=== PATIENT | male | born 1980 | race Caucasian/White ===

== ENCOUNTER 2016-10-08 09:22 | Emergency (ER) | payer OTHER ==
[~2016-10-08] VITALS: Ht 182.9 cm; Wt 99.8 kg
[2016-10-08] MEDS ORDERED: DIVA250T (09:35)
[2016-10-08] MEDS ORDERED: ASPI81TA7 (09:35)
[2016-10-08] MEDS ORDERED: DIVA500T3 (09:35)
[2016-10-08] MEDS ORDERED: PARO40TA (09:35)
[2016-10-08 09:41] VITALS: BP 133/88
[2016-10-08] MEDS ORDERED: ACET30TAB PO (10:04)
[2016-10-08] MEDS ORDERED: AMOX500C PO (10:04)
== END 2016-10-08 10:20 | disposition home or self-care (01) ==
LOC: M ED 10:05
DX: H66.92 Otitis media, unspecified, left ear (principal)

== ENCOUNTER → 2017-08-15 | Outpatient (CLI) | payer OTHER ==
[2017-08-15 09:45] LABS: BASO % 0.5 % (0.0-1.0); EOS # 0.1 10^3/uL (0.0-0.50); EOS % 1.2 % (0.0-3.0); HEMATOCRIT 45.1 % (42.0-52.0); HEMOGLOBIN 15.1 g/dl (14.0-18.0); IMMATURE GRANULOCYTE % 0.2 % (0-0); LYMPH # 1.9 10^3/uL (1.5-4.5); LYMPH % 32.5 % (24.0-44.0); MEAN CORPUSCULAR HEMOGLOBIN 30.9 pg (27.0-33.0); MEAN CORPUSCULAR HGB CONC 33.5 g/dl (32.0-36.5); MEAN CORPUSCULAR VOLUME 92.2 fl (80.0-96.0); MONO # 0.4 10^3/uL (0.0-0.8); MONO % 6.7 % (0.0-5.0); NEUTROPHILS # 3.4 10^3/uL (1.8-7.7); NEUTROPHILS % 58.9 % (36.0-66.0); PLATELET COUNT, AUTOMATED 172 10^3/uL (150-450); RED BLOOD COUNT 4.89 10^6/uL (4.30-6.10); RED CELL DISTRIBUTION WIDTH 12.1 % (11.5-14.5); WHITE BLOOD COUNT 5.8 10^3/uL (4.0-10.0)
[2017-08-15 10:02] LABS: ESTIMATED AVERAGE GLUCOSE 105 MG/DL (60-110); HEMOGLOBIN A1c 5.3 %
[2017-08-15 10:24] LABS: CHOLESTEROL LEVEL 133 MG/DL (<200); HDL CHOLESTEROL 35 MG/DL (>40); LDL CHOLESTEROL 76.4 MG/DL (<100); NON-HDL-C 98 MG/DL; THYROID STIMULATING HORMONE 0.992 uIU/ML (0.358-3.740); TRIGLYCERIDES LEVEL 108 MG/DL (<150)
[2017-08-15 12:30] LABS: FOLATE 11.8 NG/ML (>5.4)
== END ==
LOC: M LAB 09:01
DX: F34.1 Dysthymic disorder (principal)
CPT/HCPCS: 82746

== ENCOUNTER → 2018-01-17 | Outpatient (REF) | LOC: M SMT 14:54 | DX: Z02.71 Encounter for disability determination (principal) ==

== ENCOUNTER → 2018-02-19 | Outpatient (REF) | payer OTHER ==
[2018-02-19 18:58] LABS: TOTAL 25(OH) VITAMIN D 23.7 NG/ML (30.0-100.0)
== END ==
LOC: M LAB REF 17:13
DX: E55.9 Vitamin D deficiency, unspecified (principal)

== ENCOUNTER → 2019-03-29 | Outpatient (REF) | payer OTHER, MEDICAID ==
[~2019-03-29] MED LIST: ACET-716 PO; AMOX500C PO; ASPI1TAB15; DIVA250T67; DIVA500T94; PARO40TA2
[2019-03-29 13:27] LABS: BASO # 0.1 10^3/uL (0.0-0.2); EOS # 0.3 10^3/uL (0.0-0.5); EOS % 4.4 % (0.0-3.0); HEMATOCRIT 48.7 % (42.0-52.0); HEMOGLOBIN 16.1 g/dl (13.5-17.5); LYMPH # 1.7 10^3/uL (1.5-5.0); LYMPH % 25.4 % (24.0-44.0); MEAN CORPUSCULAR HEMOGLOBIN 31.3 pg (27.0-33.0); MEAN CORPUSCULAR HGB CONC 33.1 g/dl (32.0-36.5); MEAN CORPUSCULAR VOLUME 94.6 fl (80.0-96.0); MONO # 0.5 10^3/uL (0.0-0.8); MONO % 6.9 % (0.0-5.0); NEUTROPHILS # 4.2 10^3/uL (1.5-8.5); PLATELET COUNT, AUTOMATED 188 10^3/uL (150-450); RED BLOOD COUNT 5.15 10^6/uL (4.30-6.10); WHITE BLOOD COUNT 6.8 10^3/uL (4.0-10.0)
[2019-03-29 13:43] LABS: TOTAL 25(OH) VITAMIN D 25.6 NG/ML (30.0-100.0)
[2019-03-29 13:52] LABS: ALBUMIN 4.3 GM/DL (3.2-5.2); ALT/SGPT 30 U/L (12-78); BLOOD UREA NITROGEN 12 MG/DL (7-18); CALCIUM LEVEL 9.6 MG/DL (8.5-10.1); CARBON DIOXIDE LEVEL 27 MEQ/L (21-32); CHLORIDE LEVEL 110 MEQ/L (98-107); CHOLESTEROL LEVEL 129 MG/DL (<200); CHOLESTEROL RISK RATIO 3.794 (<5); CREATININE FOR GFR 0.88 MG/DL (0.70-1.30); FREE T4 1.22 NG/DL (0.76-1.46); GLOMERULAR FILTRATION RATE > 60.0 (>60); GLUCOSE, FASTING 94 MG/DL (70-100); HDL CHOLESTEROL 34 MG/DL (>40); LDL CHOLESTEROL 78 MG/DL (<100); NON-HDL-C 95 MG/DL; SODIUM LEVEL 143 MEQ/L (136-145); TOTAL PROTEIN 7.6 GM/DL (6.4-8.2); TRIGLYCERIDES LEVEL 83 MG/DL (<150)
[2019-03-29 14:25] LABS: HEMOGLOBIN A1c 5.3 %
== END ==
LOC: M LAB REF 12:47
PROVIDERS: ATTEND Nurse Practitioner Family
DX: Z00.00 Encounter for general adult medical examination without abnormal findings (principal)

== ENCOUNTER 2019-12-24 08:03 | Emergency (ER) | payer MEDICAID, OTHER ==
[~2019-12-24] VITALS: Ht 182.9 cm; Wt 101.4 kg
[~2019-12-24 08:03] MED LIST changes: +ASPI-546; -ASPI1TAB15
[2019-12-24] MEDS ORDERED: IBUP200C25 PO (08:20)
[2019-12-24] MEDS ORDERED: OMEP-218 PO (08:20)
[2019-12-24] MEDS ORDERED: LORA-674 PO (08:20)
[2019-12-24] MEDS ORDERED: NAPR-837 PO (09:25)
[2019-12-24 09:34] VITALS: BP 140/81
--- NOTE | 2019-12-24 10:50 | REP ---
LEFT FOOT, FOUR VIEWS: Four views left foot were performed. No acute fracture or dislocation is seen. There are calcifications on the distal Achilles tendon with mild posterior and inferior calcaneal spurring. There is mild spurring of the anterior aspect of the distal end of the tibia. Metatarsophalangeal joints are unremarkable. No other significant findings are seen. Electronically Signed by Freeman Mitchell MD 12/24/2019 05:07 P
== END 2019-12-24 09:37 | disposition home or self-care (01) ==
LOC: EDBD 08:03 → M ED 08:03
DX: M76.62 Achilles tendinitis, left leg (principal); F41.9 Anxiety disorder, unspecified; F32.89 Other specified depressive episodes; Z79.899 Other long term (current) drug therapy

== ENCOUNTER → 2020-08-06 | Outpatient (REF) | payer OTHER ==
[~2020-08-06] MED LIST changes: +IBUP200C25 PO; +LORA-674 PO; +NAPR-837 PO; +OMEP-218 PO
[2020-08-08 23:25] LABS: HEPATITIS C QUANTITATION HCV Not Detected IU/mL (.)
== END ==
LOC: M LAB REF 16:25
PROVIDERS: ATTEND Nurse Practitioner Family
DX: Z00.00 Encounter for general adult medical examination without abnormal findings (principal); E66.9 Obesity, unspecified; F41.1 Generalized anxiety disorder

== ENCOUNTER → 2020-10-03 | Outpatient (CLI) | payer OTHER ==
--- NOTE | 2020-10-05 17:27 | SLEEPCENT ---
NOCTURNAL POLYSOMNOGRAPHY DATE: 10/03/2020 ORDERED BY: Dr. Goodson Nocturnal polysomnography was performed for evaluation of sleep physiology in this patient with a history of excessive somnolence and nonrestorative sleep. 8 hours and 4 minutes of data were reviewed. There were 347.5 minutes of sleep identified. Sleep latency was prolonged at 91.5 minutes. REM latency was normal at 63.5 minutes. Sleep architecture was fair with some fragmentation. There were four or five REM cycles noted. Overall sleep efficiency was 72.2%. The electrocardiogram showed a sinus rhythm with an average heart rate of 62 beats per minute. EEG showed normal waveforms for wake and sleep. There were 97 respiratory events identified of 10 seconds in duration or greater for an apnea-hypopnea index of 16.7. The events were obstructive and not exclusive to sleep stage nor body posture. Arousals from respiratory events occurred 7.6 times per hour and oxygen desaturations below 90% were seen. There was activity in the limb leads, but arousal index was only 2.4. IMPRESSION: Obstructive sleep apnea syndrome (G47.33), apnea-hypopnea index 16.7. RECOMMENDATION: The patient should be encouraged to return to [facility]. In the interim, alcohol and sedative avoidance should be practiced and caution exercised during the operation of motor vehicles.
== END ==
LOC: M SLEEP 20:00
PROVIDERS: ATTEND Internal Medicine Pulmonary Disease
DX: G47.33 Obstructive sleep apnea (adult) (pediatric) (principal)

== ENCOUNTER → 2020-10-21 | Outpatient (REF) | payer OTHER ==
[2020-10-21 17:09] LABS: BASO % 0.7 % (0.0-1.0); EOS # 0.1 10^3/uL (0.0-0.5); EOS % 1.9 % (0.0-3.0); HEMATOCRIT 45.9 % (42.0-52.0); LYMPH # 1.6 10^3/uL (1.5-5.0); LYMPH % 27.2 % (24.0-44.0); MEAN CORPUSCULAR HEMOGLOBIN 30.4 pg (27.0-33.0); MEAN CORPUSCULAR HGB CONC 32.7 g/dl (32.0-36.5); MEAN CORPUSCULAR VOLUME 92.9 fl (80.0-96.0); MONO # 0.4 10^3/uL (0.0-0.8); MONO % 6.6 % (2.0-8.0); NEUTROPHILS # 3.7 10^3/uL (1.5-8.5); NEUTROPHILS % 63.3 % (36.0-66.0); PLATELET COUNT, AUTOMATED 162 10^3/uL (150-450); RED BLOOD COUNT 4.94 10^6/uL (4.30-6.10); WHITE BLOOD COUNT 5.9 10^3/uL (4.0-10.0)
[2020-10-21 17:47] LABS: ALBUMIN 4.3 GM/DL (3.2-5.2); ALT/SGPT 34 U/L (12-78); BILIRUBIN,TOTAL 0.6 MG/DL (0.2-1.0); BLOOD UREA NITROGEN 8 MG/DL (7-18); CALCIUM LEVEL 9.7 MG/DL (8.5-10.1); CARBON DIOXIDE LEVEL 29 MEQ/L (21-32); CHLORIDE LEVEL 109 MEQ/L (98-107); CHOLESTEROL LEVEL 134 MG/DL (<200); CHOLESTEROL RISK RATIO 3.268 (<5); CREATININE FOR GFR 0.79 MG/DL (0.70-1.30); FREE T4 0.95 NG/DL (0.76-1.46); GLOMERULAR FILTRATION RATE > 60.0 (>60); GLUCOSE, FASTING 97 MG/DL (70-100); HDL CHOLESTEROL 41 MG/DL (>40); LDL CHOLESTEROL 79 MG/DL (<100); NON-HDL-C 93 MG/DL; POTASSIUM SERUM 4.8 MEQ/L (3.5-5.1); SODIUM LEVEL 141 MEQ/L (136-145); TOTAL 25(OH) VITAMIN D 21.7 NG/ML (30.0-100.0); TRIGLYCERIDES LEVEL 69 MG/DL (<150)
[2020-10-21 17:57] LABS: HEMOGLOBIN A1c 5.2 %
[2020-10-21 18:26] LABS: HIV 1&2 SCREEN CENTAUR NEGATIVE (NEGATIVE)
[2020-10-23 23:07] LABS: HEPATITIS C QUANTITATION HCV Not Detected IU/mL (.); PSA TOTAL 0.4 ng/mL (0.0-4.0)
== END ==
LOC: M LAB REF 16:26
PROVIDERS: ATTEND Nurse Practitioner Family
DX: Z00.00 Encounter for general adult medical examination without abnormal findings (principal); E66.9 Obesity, unspecified; F41.1 Generalized anxiety disorder

== ENCOUNTER → 2021-12-22 | Outpatient (REF) ==
[~2021-12-22] MED LIST changes: +OMEP-173 PO; -OMEP-218 PO
== END ==
LOC: M PLAIMG 12:54
PROVIDERS: ATTEND Internal Medicine
DX: M54.59 Other low back pain (principal)

== ENCOUNTER → 2025-03-07 | Outpatient (REF) | payer OTHER ==
[~2025-03-07] MED LIST changes: +DIVA-41; -DIVA500T94; +LORA-1041 PO; -LORA-674 PO
[2025-03-07 16:54] LABS: ALT/SGPT 28 U/L (7.0-40); AST/SGOT 18 U/L (<34); CALCIUM LEVEL 9.7 MG/DL (8.5-10.1); CARBON DIOXIDE LEVEL 24 MMOL/L (20-31); CHLORIDE LEVEL 114 MMOL/L (98-107); CHOLESTEROL LEVEL 170 MG/DL (<200); CHOLESTEROL RISK RATIO 4.56 (<5); CREATININE FOR GFR 0.80 MG/DL (0.70-1.30); GLOMERULAR FILTRATION RATE > 90.0 (>60); LDL CHOLESTEROL 87.8 MG/DL (<100); NON-HDL-C 132.8 MG/DL; POTASSIUM SERUM 4.5 MMOL/L (3.5-5.1); SODIUM LEVEL 149 MMOL/L (136-145); TRIGLYCERIDES LEVEL 225 MG/DL (<150)
== END ==
LOC: M LAB REF 16:13
PROVIDERS: ATTEND Family Medicine Addiction Medicine
DX: E66.9 Obesity, unspecified (principal)

== ENCOUNTER → 2025-03-12 | Outpatient (REF) | payer OTHER ==
[2025-03-12 12:45] LABS: CALCIUM LEVEL 9.3 MG/DL (8.5-10.1); CARBON DIOXIDE LEVEL 24 MMOL/L (20-31); CHLORIDE LEVEL 111 MMOL/L (98-107); CREATININE FOR GFR 0.87 MG/DL (0.70-1.30); GLOMERULAR FILTRATION RATE > 90.0 (>60); POTASSIUM SERUM 4.0 MMOL/L (3.5-5.1); SODIUM LEVEL 147 MMOL/L (136-145)
== END ==
LOC: M LAB REF 12:13
PROVIDERS: ATTEND Family Medicine Addiction Medicine
DX: E87.0 Hyperosmolality and hypernatremia (principal)

== ENCOUNTER → 2025-05-14 | Outpatient (REF) | payer OTHER ==
[2025-05-14 13:32] LABS: ALT/SGPT 34 U/L (7.0-40); AST/SGOT 24 U/L (<34); CALCIUM LEVEL 9.8 MG/DL (8.5-10.1); CARBON DIOXIDE LEVEL 28 MMOL/L (20-31); CHLORIDE LEVEL 109 MMOL/L (98-107); CHOLESTEROL LEVEL 167 MG/DL (<200); CHOLESTEROL RISK RATIO 4.37 (<5); CREATININE FOR GFR 0.94 MG/DL (0.70-1.30); GLOMERULAR FILTRATION RATE > 90.0 (>60); LDL CHOLESTEROL 105.2 MG/DL (<100); NON-HDL-C 128.8 MG/DL; POTASSIUM SERUM 4.1 MMOL/L (3.5-5.1); SODIUM LEVEL 148 MMOL/L (136-145); TRIGLYCERIDES LEVEL 118 MG/DL (<150)
== END ==
LOC: M LAB REF 12:20
PROVIDERS: ATTEND Family Medicine Addiction Medicine
DX: E78.5 Hyperlipidemia, unspecified (principal)